=== PATIENT | male | born 1945 | race Caucasian/White ===

== ENCOUNTER 2018-06-09 09:00 | Outpatient (CLI) | payer MEDICARE, BC ==
--- NOTE | 2018-06-09 10:16 | RAD ---
LUMBAR SPINE THREE VIEWS: History: Low back pain with radiculopathy. FINDINGS: Lateral views include neutral, flexion, and extension positioning. Minimal chronic appearing compress ion of the L1 and L2 superior endplate and the partially visualized T11 and T12 vertebral bodies. Pro minent osteophytosis throughout the vertebral bodies and facets. Disc space narrowing at the L3-4 lev el and L1-2. On the neutral view, there is 4 mm retrolisthesis at the L1-2 level and 6 mm retrolisthesis at the L2 -3 level that increases to 8 mm at each level upon extension and are unchanged upon flexion. Calcification overlies the arterial structures. IMPRESSION: 1. Prominent lumbar spondylosis including translational motion at the L1-2 and L2-3 levels (with retr olisthesis) as detailed above. 2. Atherosclerosis. POS: RAY
--- NOTE | 2018-06-09 12:36 | MRI ---
LUMBAR SPINE MRI NONCONTRAST: Indication: Lumbar radiculopathy. FINDINGS: There is diffuse degenerative marrow signal heterogeneity. Conus medullaris terminates at the L1 leve l. There is incompletely assessed cyst formation in the right kidney, multifocal. Multilevel moderate bilateral degenerative facet hypertrophy is present. Patient motion present on the exam which does limit evaluation. L5-S1: There is trace spondylolisthesis. This does result in moderate right foraminal stenosis when c ombined with degenerative facet hypertrophy and right asymmetric disc bulge. Mild narrowing of the ce ntral canal is present. No high grade left foraminal stenosis. L4-5: Moderate to severe central canal stenosis present as a result of a right asymmetric disc osteop hyte along with degenerative facet hypertrophy, as well as superimposed right subarticular disc extru fidencio with inferior disc migration. This obliterates the right subarticular zone and thus imaged the t raversing right L5 nerve root. There is also moderate to severe right foraminal stenosis impinging th e right L4 nerve root. There is no high grade left foraminal stenosis. Synovial cyst formation is pre sent on the left. L3-4: There is moderate to severe central canal stenosis as a result of a broad based disc osteophyte with superimposed right paracentral disc protrusion. This impinges the traversing right L4 nerve mariana t and produces mild to moderate right foraminal narrowing. There is mild to moderate left foraminal n arrowing. Bilateral degenerative facet hypertrophy is seen. L2-3: There is moderate central canal stenosis with prominent narrowing of the subarticular zone impi nging upon the right traversing right L3 nerve root which is due to broad based disc osteophyte with superimposed right subarticular disc protrusion. There is a mild amount of bilateral neural foraminal narrowing. L1-2: Mild narrowing of the central canal as a result of disc osteophyte. Mild narrowing of each neur al foramen. T12-L1: There is a left paracentral disc protrusion which approaches the ventral aspect of the conus medullaris with moderate narrowing of the central canal. Conus medullaris terminates at the inferior L1 level. IMPRESSION: 1. Prominent multilevel degenerative change throughout the lumbar spine, with multilevel disc degener ative disease as well as superimposed disc protrusion/disc extrusion formation, as discussed above. 2. Incompletely assessed multifocal right renal cyst formation. POS: GEOFFREY
== END 2018-06-09 09:01 | disposition home or self-care (01) ==
LOC: TBSIIMAG 09:00
PROVIDERS: ATTEND Neurological Surgery
DX: M47.26 Other spondylosis with radiculopathy, lumbar region (principal); M43.16 Spondylolisthesis, lumbar region; I70.90 Unspecified atherosclerosis; N28.1 Cyst of kidney, acquired; M51.16 Intervertebral disc disorders with radiculopathy, lumbar region; M48.07 Spinal stenosis, lumbosacral region; M48.061 Spinal stenosis, lumbar region without neurogenic claudication; M99.83 Other biomechanical lesions of lumbar region; M51.35 Other intervertebral disc degeneration, thoracolumbar region
CPT/HCPCS: 72100; 72148

== ENCOUNTER 2019-12-15 05:51 | Day surgery (SDC) | payer MEDICARE, BC ==
--- NOTE | 2019-12-14 14:05 | HP ---
CHIEF COMPLAINT: "I'm here for surgery." HISTORY OF PRESENT ILLNESS: Manuelito Rendon is a 74-year-old male, who continues to get some intense lower back pain, some gluteal pain, and some thigh and leg weakness when he stands for over few minutes or walks more than 50 yards. Sitting down immediately helps him or leaning over shopping cart does as well. He has not lost any control of his bowel or bladder. He has not lost any strength compared to last year. Mr. Rendon needed cardiology clearance due to a blockage that required stenting and he has been safely stopped by his cardiologists, Plavix for 1 week prior to his surgery and he will remain 2 weeks after surgery. Anesthesia also cleared Mr. Rendon for his L2-L3, L3-L4, L4-L5 laminectomy. PAST MEDICAL HISTORY: Lower back and hip pain, hypertension, and diabetes. PAST SURGICAL HISTORY: None. HOSPITALIZATIONS: None. FAMILY HISTORY: Father , had hypertension and bladder cancer. Mother , had hypertension and heart disease. SOCIAL HISTORY: He was a former smoker, used to smoke 20 cigarettes a day for the past 10 years. He quit in 1973. He does not drink. He is not sexually active. He does drink caffeine 2 cups a day and he is retired. He has 2 children, 40 and 46. MEDICATIONS: 1. Atorvastatin 40 mg. 2. Metoprolol 50 mg. 3. Amlodipine 5 mg. 4. Lisinopril 20/12.5 mg. 5. Ciara aspirin 81 mg. 6. Gabapentin 300 mg. HEALTH MAINTENANCE: He had a colonoscopy in 2017. His screen and PSA in 2017 and his last eye exam was in 2018. REVIEW OF SYSTEMS: CONSTITUTIONAL: Denies fever, chills, weight loss, night sweats, or loss of energy. HEENT: Denies double vision, blurred vision, or difficulty swallowing. CARDIOVASCULAR/RESPIRATORY: Denies chest pain, shortness of breath, or cough. GASTROINTESTINAL: Denies indigestion, vomiting, or black stool. GENITOURINARY: Denies burning urination, blood in urine, or incontinence. MUSCULOSKELETAL: Lower back pain, some gluteal pain, and some thigh pain. NEUROLOGICAL: Some leg weakness when he stands over several minutes or walks over 50 yards. PSYCHIATRIC: Denies anxiety hallucinations, personality changes, or crying. PHYSICAL EXAMINATION: HEENT: Pupils are equal. NECK: Normal. Soft and supple. No masses are noted. ROM is intact and nonpainful. NEUROLOGICAL: Awake, alert, and oriented x3. Memory, attention, fund of knowledge, and language are normal. Cranial nerves II through XII grossly intact. Lower extremities works under his own power. He has good strength in the iliopsoas, quadriceps, hamstrings, anterior tibia, EHL, and gastrocnemius. He has some leg dependent stocking distribution and sensory loss that is symmetric. Toe reflexes at the ankles are hypoactive, normal at the knees. The toes are downgoing. There is no clonus. There is no Babinski. IMAGING STUDIES: There is stenosis at L2-L3, L3-L4, L4-L5. There is a foraminal disease around L5 through S1 foramen especially on the right side. Flexion and extension x-rays do not show instability. IMPRESSION: 1. Neurogenic claudication. 2. Three-level lumbar stenosis. 3. Foraminal stenosis, right L5 through S1. PLAN: Decompression laminectomy at L2-L3, L3-L4, L4-L5. He is going to need Emery frame in the operating room. He has been cleared by Cardiology and Anesthesia for his surgery. Mr. Rendon will need to be off Plavix for 1 week before and 2 weeks after surgery. He can remain on baby aspirin. INFORMED CONSENT: I discussed the indications, risks, benefits, alternatives, and expected results from surgery. The risks discussed included, but were not limited to, bleeding, infection, CSF leak, nerve damage, cauda equina injury, paralysis, incontinence, wheelchair dependency, major blood vessel injury, cardiopulmonary complications of anesthesia, and . Long-term risks include spinal instability and the need for future surgery. The patient understands the risks and is willing to proceed. We will perform an L2 through L5 laminectomy and a foraminotomy at each levels, especially the right L5-S1 level. Job ID: [id number] [facility]
[2019-12-15] MEDS ORDERED: Thrombin 5000 UNITS/5 ML VIAL ONE ×2 (06:11→06:12)
[2019-12-15] MEDS ORDERED: Bupivacaine PF 0.5% 30 ML VIAL ONE (06:11)
[2019-12-15 06:39] LABS: INR-International Normal Ratio 0.9; PTT 31.4 SEC (22.9-36.1); Prothrombin Time 12.6 SEC (12.0-14.7)
[2019-12-15] MEDS ORDERED: Fentanyl 100 MCG/2 ML VIAL ONE (06:43)
[2019-12-15 06:46] LABS: Hemoglobin 15.1 g/dL (14.0-18.0); Mean Corpuscular Hemoglobin 30.4 pg (27.0-31.0); Mean Corpuscular Volume 89.4 fL (78.0-98.0); Mean Platelet Volume 6.9 fL (7.4-10.4); Platelet Count 270 thou/uL (130-400); RBC Distribution Width 12.8 % (11.5-14.5); Red Blood Cell (RBC) Count 4.96 mill/uL (4.70-6.10); White Blood Cell (WBC) Count 7.5 thou/uL (4.8-10.8)
[2019-12-15 07:02] LABS: Anion Gap 11 mmol/L (10-20); BUN (Urea Nitrogen) 13 mg/dL (8.4-25.7); Calc. Creatinine Clearance 137 mL/min (70-130); Carbon Dioxide 27 mmol/L (23-31); Chloride 103 mmol/L (98-107); Estimated GFR-MDRD Greater than 90; Glucose 106 mg/dL (83-110); Potassium 4.1 mmol/L (3.5-5.1); Sodium 137 mmol/L (136-145)
[2019-12-15] MEDS ORDERED: Meperidine HCl/PF 25 MG/ML VIAL SLOW IVP PRN (07:17)
[2019-12-15] MEDS ORDERED: Acetaminophen 650 MG Suppository PR PRN (07:17)
[2019-12-15] MEDS ORDERED: Promethazine HCl 25 MG/ML VIAL IM PRN (07:17)
[2019-12-15] MEDS ORDERED: Ondansetron PF 4 MG/2 ML Vial IVP PRN (07:17)
[2019-12-15] MEDS ORDERED: Morphine 2 MG/ML SYRINGE SLOW IVP PRN (07:17)
[2019-12-15] MEDS ORDERED: Milk Of Magnesia 30 ML UDCUP PO PRN (07:17)
[2019-12-15] MEDS ORDERED: Promethazine 25 MG TAB PO PRN (07:17)
[2019-12-15] MEDS ORDERED: Acetaminophen/Codeine 30-300mg Tablet PO PRN ×2 (07:17)
[2019-12-15] MEDS ORDERED: Bisacodyl 10 MG SUPP PR PRN (07:17)
[2019-12-15] MEDS ORDERED: diphenhydrAMINE 50 MG/ML VIAL IVP PRN (07:17)
[2019-12-15] MEDS ORDERED: Mag-Al 1200 mg/1200 mg/30 ML UDCUP PO PRN (07:17)
[2019-12-15] MEDS ORDERED: diphenhydrAMINE 25 MG CAP PO PRN (07:17)
[2019-12-15] MEDS ORDERED: tiZANidine HCl 4 MG TAB PO PRN (07:17)
[2019-12-15] MEDS ORDERED: Acetaminophen 325 MG TAB PO PRN (07:17)
[2019-12-15] MEDS ORDERED: Promethazine HCl 12.5 MG SUPP PR PRN (07:17)
[2019-12-15] MEDS ORDERED: HYDROcodone/Acetaminophen 10/325 mg Tablet PO PRN (07:17)
[2019-12-15] MEDS ORDERED: Morphine 4 MG/ML VIAL SLOW IVP PRN (07:17)
[2019-12-15] MEDS ORDERED: Scopolamine 1.5 mg/72 hour Patch TD SCH (07:30)
[2019-12-15] MEDS ORDERED: metFORMIN 500 MG TAB PO SCH (08:00)
[2019-12-15] MEDS ORDERED: HYDROmorphone 2 MG/ML VIAL ONE (08:05)
[2019-12-15] MEDS ORDERED: EPHEDRINE 25 MG/5 ML SYRINGE ONE ×2 (08:57→11:58)
[2019-12-15] MEDS ORDERED: Lisinopril/Hydrochlorothiazide 20 mg/12.5 mg Tablet PO SCH (09:00)
[2019-12-15] MEDS ORDERED: Glycopyrrolate 0.2 MG/ML 5 ML SYRINGE ONE (11:58)
[2019-12-15] MEDS ORDERED: Ondansetron PF 4 MG/2 ML Vial ONE (11:58)
[2019-12-15] MEDS ORDERED: PROPOFOL 200 MG/20 ML VIAL ONE (11:58)
[2019-12-15] MEDS ORDERED: Rocuronium Bromide 10 MG/ML (10ML VIAL) ONE (11:58)
[2019-12-15] MEDS ORDERED: Lidocaine 1% PF 5 ML VIAL ONE (11:58)
--- NOTE | 2019-12-15 13:19 | OP ---
DATE OF PROCEDURE: 12/15/2019 [employer]T CONVEYOR DRIER: Tacos Hou PA-C. PREOPERATIVE INDICATION: Treat pain and prevent neurological deterioration. PREOPERATIVE DIAGNOSIS: Multilevel lumbar stenosis with neurogenic claudication. POSTOPERATIVE DIAGNOSIS: Multilevel lumbar stenosis with neurogenic claudication. PROCEDURE PERFORMED: Decompressive laminectomy, medial facetectomy, foraminotomy at L2-3, L3-4, L4-5, right L5-S1 foramen. PREOPERATIVE MEDICATIONS: Ancef 2 g IV. DRAIN NUMBER: Zero. DRAIN TYPE: None. DESCRIPTION OF PROCEDURE: The patient was brought to the operating room. General endotracheal anesthesia was induced. The patient was positioned prone on the Emery frame with appropriate padding for the chest and hips. A lateral fluoro radiograph was used to plan our incision. Hair was removed with electric clippers and the lumbar skin was sterilely prepped and draped. We opened with a 10-blade knife and we controlled bleeding with bipolar and monopolar cautery. We used monopolar cautery to dissect through the subcutaneous tissues to the thoracodorsal fascia. We incised the fascia in the midline and we reflected the paraspinal muscles off the spinous process and lamina of L2, L3, L4, L5 and the right side of S1. Self-retaining retractors were placed and a lateral fluoro radiograph confirmed the levels upon which we were operating. We then used Adson rongeur to remove the spinous processes of L2 to the top of L5 and a Kerrison rongeur to fashion out a laminectomy from the bottom of L4 to the pedicles of L2. We widened our laminectomy defect by performing medial facetectomies at L2-3 and L3-4 as well as L4-5. We removed the superior 6 to 7 mm of L5 lamina and performed medial facetectomies there as well. Once we were lateral to the dura and the lateral recesses were well decompressed, we used a Gtz ball probe to probe each foramen. We made sure with Kerrison rongeurs that every nerve root from L2-L5 bilaterally was decompressed in the lateral recess and out the foramen. We paid particular attention to the right L5-S1 foramen. Here we removed more of the L5 lamina than on the left side. We ensured that we were down to the pedicle of S1 and that a Gtz ball probe could leave the foramen with the nerve and pass into the paraspinal space. This required more of a foraminotomy than at the other segments, but once we had decompression and secured, we turned our attention to irrigation. After copious amounts of bacitracin irrigation, we infused local anesthetic in the paraspinal muscles. We waxed the bone edges. We closed the wound in anatomical layers and we applied a sterile dressing. This was a clean case, no contamination. Job ID: [id number]
[2019-12-15 13:49] VITALS: BMI 39.1
--- NOTE | 2019-12-15 14:26 | PDOC.HOSPP ---
- Subjective Encounter Date: 12/15/19 Encounter Time: 14:00 Subjective: Patient seen and examined. s/p Laminectomy. No new complaints. Consulted for medical management. - Objective Vital Signs & Weight: Vital Signs (12 hours) Temp Pulse Resp BP Pulse Ox 12/15/19 12:20 97.5 F L 91 20 144/88 H 94 L Weight Weight 265 lb Result Diagrams: 12/15/19 06:10 12/15/19 06:34 EKG Reviewed by me: Yes (SB/SA) Hospitalist ROS - Review of Systems Constitutional: denies: fever, chills, sweats, weakness, malaise, other Respiratory: denies: cough, dry, shortness of breath, hemoptysis, SOB with excertion, pleuritic pain, sputum, wheezing, other Cardiovascular: denies: chest pain, palpitations, orthopnea, paroxysmal noc. dyspnea, edema, light headedness, other Gastrointestinal: denies: nausea, vomiting, abdominal pain, diarrhea, constipation, melena, hematochezia, other - Exam General Appearance: NAD, awake alert Heart: RRR, no murmur, no gallops, no rubs, normal peripheral pulses Respiratory: CTAB, no wheezes, no rales, no ronchi Neurological: no focal deficits Psychiatric: normal affect, A&O x 3 Hosp A/P - Plan PT/OT Impression: HTN, chronic, stable DMII, chronic HLD, chronic CAD, chronic, stable Plan: Continue ASA 81mg per Dr. Cortez Hold Plavix x [address] Mata Continue IVF Continue PT Restart home medications AC/HS accuchecks BMP and H/H in AM Discussed IS, DVT prophylaxis exercises and constipation prevention.
[2019-12-15] MEDS: Sodium Chloride 0.9% 1,000 ML IV SCH ×2 (14:43→18:43)
[2019-12-15] MEDS: CEFAZOLIN 2 GM in Premix Bag 1 BAG IVPB SCH ×2 (15:06→22:32)
[2019-12-15] MEDS: HYDROcodone/Acetaminophen 10/325 mg Tablet PO PRN (18:10)
[2019-12-15] MEDS ORDERED: hydrALAZINE 20 MG/ML VIAL SLOW IVP PRN (18:28)
[2019-12-15] MEDS ORDERED: Polyethylene Glycol 3350 17 GM Packet PO PRN (18:29)
[2019-12-15] MEDS ORDERED: Sodium Chloride 0.9% 500 ML IV SCH (18:30)
[2019-12-15] MEDS ORDERED: Atorvastatin Calcium 40 MG TAB PO SCH (21:00)
[2019-12-15] MEDS ORDERED: Tamsulosin HCl 0.4 MG CAP PO SCH (21:00)
[2019-12-15] MEDS: Senokot S 8.6-50 MG TAB PO SCH (22:01)
--- NOTE | 2019-12-15 23:14 | PRG ---
DATE OF SERVICE: 12/15/2019 SUBJECTIVE: The patient was seen and examined. I agree with the note by nurse practitioner, Donald Heredia. In summary, the patient is a 74-year-old male with hypertension, hyperlipidemia, diabetes mellitus type 2, and coronary artery disease, underwent laminectomy today. His pain is controlled at this time. CURRENT MEDICATIONS: Reviewed. OBJECTIVE: VITAL SIGNS: Showed blood pressure of 144/88 with O2 saturations of 94% on 3 L nasal cannula. LUNGS: Clear to auscultation bilaterally. No wheezing, rales, or rhonchi. HEART: S1, S2 present. ABDOMEN: Soft. Bowel sounds present. EXTREMITIES: No edema or calf tenderness. LABORATORY DATA: Reviewed. WBC was 7.5. Sodium 137, potassium 4.1. IMPRESSION: 1. Hypertension. 2. Hyperlipidemia. 3. Diabetes mellitus type 2. 4. Coronary artery disease. 5. Urinary retention. 6. Obesity with a BMI of 39.1. PLAN: We will continue metoprolol succinate at low dose. Flomax will be administered now due to urinary retention. We will continue sliding scale. Discontinue IV fluids when tolerating p.o. We will hold lisinopril/hydrochlorothiazide for now. We will restart in a.m. based on his blood pressure. We will add p.r.n. antihypertensives. We will continue other medications. I agree with the note by the nurse practitioner, Donald Heredia. Job ID: [id number]
[2019-12-16] MEDS: Sodium Chloride 0.9% 1,000 ML IV SCH (02:45)
[2019-12-16] MEDS ORDERED: Tamsulosin HCl 0.4 MG CAP PO SCH (06:00)
--- NOTE | 2019-12-16 07:55 | PRG ---
DATE OF SERVICE: 12/16/2019 Mr. Rendon is one day out from lumbar laminectomy. The radicular pain he had before his surgery is gone. His back is sore. He has been up and out of bed. He is a little bit hesitant to say he can get home today, but he is reassured by the fact that his leg pain was gone when he stood up. I do not see a fever recorded among electronic vital signs. His neurological examination is stable. Mr. Rendon will be ready for discharge if he is safe for activities of daily living. We will Hep-Lock the IV, assess his urinary function, have him walk and get in and out of bed. Once he is safe for his all activities of daily living, he can be discharged. I anticipate that happening after lunch. Job ID: [id number]
[2019-12-16] MEDS: HYDROcodone/Acetaminophen 10/325 mg Tablet PO PRN ×2 (08:35→12:55)
[2019-12-16] MEDS: Senokot S 8.6-50 MG TAB PO SCH (08:35)
[2019-12-16] MEDS ORDERED: Lisinopril/Hydrochlorothiazide 20 mg/12.5 mg Tablet PO SCH (09:00)
[2019-12-16 12:05] VITALS: BP 111/72; TEMP 98.7
== END 2019-12-16 14:15 | disposition home or self-care (01) ==
LOC: SDC 05:51 → SURG A 12:30 → SDC 12-16 14:15
PROVIDERS: ATTEND Neurological Surgery
PROC: 0ST20ZZ Resection of Lumbar Vertebral Disc, Open Approach (ICD-10-PCS; principal; 2019-12-15)
PROC: 01NB0ZZ Release Lumbar Nerve, Open Approach (ICD-10-PCS; 2019-12-15)
DX: M48.062 Spinal stenosis, lumbar region with neurogenic claudication (principal); I10 Essential (primary) hypertension; E11.9 Type 2 diabetes mellitus without complications; E78.5 Hyperlipidemia, unspecified; I25.10 Atherosclerotic heart disease of native coronary artery without angina pectoris; R33.9 Retention of urine, unspecified; E66.9 Obesity, unspecified; Z68.39 Body mass index [BMI] 39.0-39.9, adult; Z79.899 Other long term (current) drug therapy; Z87.891 Personal history of nicotine dependence
CPT/HCPCS: 36415; 36416; 76000; 80048; 85027; 85610; 85730; 93005; 93010; J0690; J1170; J2001; J2405; J2704; J3010; J3370; J3490; S0020